=== PATIENT | female | born 1975 | race Caucasian/White ===

== ENCOUNTER 2024-01-11 12:06 | Emergency (ER) | payer OTHER ==
[~2024-01-11] VITALS: Ht 172.7 cm; Wt 70.3 kg
[2024-01-11 12:42] VITALS: O2SAT 99
[2024-01-11] MEDS ORDERED: BUDE10.22 INH (13:09)
[2024-01-11] MEDS ORDERED: ALBU6.7H9 INH (13:09)
[2024-01-11] MEDS ORDERED: DOXY100T2 PO (13:09)
[2024-01-11] MEDS ORDERED: methylPREDNISolone SOD SUCC 40 MG/ML VIAL ONE (13:12)
[2024-01-11] MEDS ORDERED: DOXYCYCLINE HYCLATE 100 MG TABLET ONE (13:12)
[2024-01-11] MEDS: methylPREDNISolone SOD SUCC 40 MG/ML VIAL IM ONE (13:18)
[2024-01-11] MEDS: DOXYCYCLINE HYCLATE 100 MG TABLET PO ONE (13:18)
[2024-01-11 13:19] VITALS: BP 137/80; TEMP 97
[2024-01-11 13:53] VITALS: O2SAT 100
== END 2024-01-11 14:04 | disposition home or self-care (01) ==
LOC: ER 12:06
DX: J45.909 Unspecified asthma, uncomplicated (principal); Z79.899 Other long term (current) drug therapy
CPT/HCPCS: 99285; 71045; 94010; 96372; J2919; A4606; A4663

== ENCOUNTER 2024-06-20 18:58 | Emergency (ER) | payer OTHER ==
[~2024-06-20] VITALS: Ht 172.7 cm; Wt 70.3 kg
[~2024-06-20 18:58] MED LIST: ALBU6.7H9 INH; BUDE10.22 INH; DOXY100T2 PO
[2024-06-20] MEDS ORDERED: CYCL5TAB PO (19:50)
[2024-06-20 19:59] VITALS: BP 121/87; TEMP 98.6; O2SAT 100
== END 2024-06-20 19:59 | disposition home or self-care (01) ==
LOC: ER 19:02
DX: S30.0XXA Contusion of lower back and pelvis, initial encounter (principal); G40.909 Epilepsy, unspecified, not intractable, without status epilepticus; Z79.51 Long term (current) use of inhaled steroids; Z90.49 Acquired absence of other specified parts of digestive tract; W11.XXXA Fall on and from ladder, initial encounter; Y93.89 Activity, other specified; Y92.89 Other specified places as the place of occurrence of the external cause; Y99.0 Civilian activity done for income or pay
CPT/HCPCS: A4606; A4663

== ENCOUNTER 2024-09-05 22:39 | Emergency (ER) | payer OTHER ==
[~2024-09-05] VITALS: Ht 170.2 cm; Wt 67.6 kg
[~2024-09-05 22:39] MED LIST changes: +CYCL5TAB PO
[2024-09-05 22:44] VITALS: O2SAT 100
[2024-09-05 23:26] LABS: BASOPHILS % (AUTO) 0.4 % (0.0-2.0); EOSINOPHILS # (AUTO) 0.1 K/uL (0.0-0.7); HEMATOCRIT 35.9 % (31.2-41.9); HEMOGLOBIN 12.3 g/dL (10.9-14.3); LYMPHOCYTES # (AUTO) 2.9 K/uL (0.8-4.8); LYMPHOCYTES % (AUTO) 51.1 % (20.5-51.5); MEAN CORPUSCULAR HEMOGLOBIN 29.7 uug (24.7-32.8); MEAN CORPUSCULAR HGB CONC 34 g/dL (32.3-35.6); MEAN CORPUSCULAR VOLUME 86.8 fL (75.5-95.3); MONOCYTES # (AUTO) 0.5 K/uL (0.1-1.30); MONOCYTES % (AUTO) 9.1 % (0.0-11.0); NEUTROPHILS # (AUTO) 2.1 K/uL (1.8-8.9); NEUTROPHILS % (AUTO) 37.4 % (38.5-71.5); PLATELET COUNT (AUTO) 274 K/uL (179-408); RED BLOOD CELL COUNT(AUTO) 4.14 MIL/uL (3.63-4.92); RED CELL DISTRIBUTION WIDTH 12.6 % (12.3-17.7); WHITE BLOOD COUNT (AUTO) 5.7 K/uL (3.8-11.8)
[2024-09-05 23:43] LABS: DIFFERENTIAL COMMENT 1
[2024-09-05 23:46] LABS: CALCIUM 8.8 mg/dL (8.5-10.1); CARBON DIOXIDE 26 mmol/L (21-32); CHLORIDE 104 mmol/L (98-107); CREATININE 0.6 mg/dL (0.6-1.3); GLUCOSE 93 mg/dL (74-106); POTASSIUM 3.8 mmol/L (3.5-5.1); SODIUM SERUM 139 mmol/L (136-145); UREA NITROGEN, BLOOD 17 mg/dL (7-18)
[2024-09-06] MEDS ORDERED: NAPROXEN 500 MG TABLET ONE (00:57)
[2024-09-06] MEDS: NAPROXEN 500 MG TABLET PO ONE (00:59)
== END 2024-09-06 01:19 | disposition left against medical advice (07) ==
LOC: ER 23:19
DX: R07.89 Other chest pain (principal); G40.909 Epilepsy, unspecified, not intractable, without status epilepticus; Z79.51 Long term (current) use of inhaled steroids; Z90.49 Acquired absence of other specified parts of digestive tract
CPT/HCPCS: 36415; 71045; 84484; 85025; A4606; A4663